=== PATIENT | female | born 2005 | race Caucasian/White ===

== ENCOUNTER 2023-12-09 13:00 | Outpatient (AMB) | payer BC, SELFPAY ==
--- NOTE | 2023-12-09 13:06 | A.OFFPC_ITS ---
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 Required: No Is last menstrual period known: No Allergies sulfamethoxazole [From Bactrim] Allergy (Intermediate, Verified 12/09/23 13:07) skin rash trimethoprim [From Bactrim] Allergy (Intermediate, Verified 12/09/23 13:07) skin rash Medication List - Last Reconciled 12/09/23 by Shannan Huitron PA-C escitalopram oxalate (Lexapro) 5 mg PO DAILY propranolol 20 mg PO ONCE PRN 30 days Tobacco use date assessed: 12/09/23 Dental Screening Dental Screen Date: 12/09/23 Did you have a dental visit in the last 12 months?: Yes Did you have a dental problem in the last 6 months where you did not have access to dental care?: No Was dental information given to patient?: Patient has dentist 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 She states that 6 months ago she had labs and her cholesterol was elevated along with her thyroid function. She was supposed to get this rechecked but never did. She states that she has a small lesion on the right outside thigh. She states recently it got a bit darker and changed. No fam hx of skin cancer. She would like this checked out. She states in the last month she has felt like her hearing is off. She states sometimes she has a hard time pinpointing where a sound is coming from. She denies any headaches, vision changes, dizziness. She does wear headphones a lot and has at times had ringing in the ears. Denies any drainage from the ear, pain, sinus pain or pressure. She does report that her anxiety is significantly flared up over the last 6 months. She states that in the spring sem she had a very hard semester at school because she was constantly panicked. She states that any time she has to do a big test or any sort of public speaking it makes her anxious. She states that even if she finds out about it with plenty of time to prepare she feels anxious everyday. She has always had a hard time talking with people in groups or even 1 on . She states that she gets social anxiety and anxiety going new places. She can feel her heart race at times with this. She has talked with a counselor and she states that it felt good to speak with someone but she did not feel like it was very beneficial in treating her. No SI/HI. She has had anxiety since childhood. 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 1. Little interest or pleasure in doing things: not at all 2. Feeling down, depressed, or hopeless: not at all 3. Trouble falling or staying asleep, or sleeping too much: several days 4. Feeling tired or having little energy: several days 5. Poor appetite or overeating: not at all 6. Feeling bad about yourself - or that you are a failure or have let yourself or your family down: not at all 7. Trouble concentrating on things, such as reading the newspaper or watching television: several days 8. Moving or speaking so slowly that other people could have noticed. Or the opposite - being so fidgety or restless that you have been moving around a lot more than usual: not at all 9. Thoughts that you would be better off or of hurting yourself in some way: not at all Total score: 3 Depression Screening Interpretation: Positive Depression Screening Done: Yes 24712 - PHQ-9 Billing: Yes Source: Developed by Drs. Negrito Duncan, Caron Sotelo, Nils Garcia and colleagues, with an educational bishop from [employer]. Thrive Questionnaire Date Thrive assessed: 12/09/23 I am a: Patient What is your living situation today?: I have a steady place to live Within the past 12 months, did the food you bought not last and you didn't have the money to get more?: Never true Within the past 12 months, did you worry whether your food would run out before you got money to buy more?: Never true Do you have trouble paying for medicines?: No Do you have trouble getting transportation to medical appointments?: No Do you have trouble paying your heating and electricity bill?: No Do you have trouble taking care of your child, family member or friend?: No Do you have trouble with day-to-day activities such as bathing, preparing meals, shopping, managing finances, etc.?: No Are you interested in more education?: Yes Please select the resources that you would like help with: None Currently or been in a relationship where the following occur: No concerns reported THRIVE Score: 0 AUDIT C Alcohol Use Questionnaire (AUDIT-C) 1. How often do you have a drink containing alcohol?: Never 3. How often do you have six or more drinks on one occasion?: Never Total Score: 0 CLARIBEL-7 AMB Questionnaire CLARIBEL-7 Date CLARIBEL - 7 assessed: 12/09/23 Feeling nervous, anxious, or on edge: 2 = More than half the days Not being able to stop or control worryin = More than half the days Worrying too much about different things: 1 = Several days Trouble relaxin = Several days Being so restless that it is hard to sit still: 1 = Several days Becoming easily annoyed or irritable: 1 = Several days Feeling afraid as if something awful might happen: 1 = Several days Total CLARIBEL-7 score (0-4 normal; 5-9 mild; 10-14 moderate; 15-21 severe): 9 Source: Developed by Drs. Negrito Duncan, Caron Sotelo, Nils Garcia and colleagues, with an educational bishop from [employer]. CLARIBEL-7 Assessment Billing CLARIBEL-7 Assessment Tool: CLARIBEL-7 Assessment 73484 Physical exam (Primary Care) Vital Signs: Last Vital Signs Temp 98.8 F 12/09/23 13:08 Pulse 115 H 12/09/23 13:08 Resp 12 12/09/23 13:08 BP 102/70 12/09/23 13:08 Pulse Ox 98 12/09/23 13:08 Oxygen Delivery Method Room Air 12/09/23 13:08 BMI result Body Mass Index 23.2 Depression Screening Interpretation: Positive Currently or been in a relationship where the following occur: No concerns reported Const Orientation/consciousness: patient oriented x3 HENMT Ears: hearing grossly normal bilaterally (Able to hear a soft whisper 4 ft away bilaterally) and TM's normal bilaterally Face and sinus: Yes sinuses nontender Neck Thyroid: Thyroid normal Lymphatic: no lymphadenopathy noted Resp Auscultation: clear to auscultation bilaterally Cardio Rate: regular rate Rhythm: regular rhythm Heart sounds: S1 normal heart sound present and S2 normal heart sound present GI Inspection: Yes normal to inspection Palpation (GI): Soft to palpation and Other GI palpation findings present (nontender, no cva tenderness) Auscultation: normoactive bowel sounds Rectal Exam - Female: deferred Skin General skin exam: no rashes or lesions noted Neuro General: patient oriented x3, gait normal, moves all extremities, Normal light touch and pain sensation, no focal motor deficits and deep tendon reflexes 2+ bilaterally Assessment and Plan Assessment & Plan (1) Subclinical hypothyroidism: Code(s): E03.8 - Other specified hypothyroidism Plan: Labs ordered today. We will follow up pending test results. (2) Dyslipidemia: Code(s): E78.5 - Hyperlipidemia, unspecified Plan: We will recheck labs (3) Generalized anxiety disorder: Code(s): F41.1 - Generalized anxiety disorder Plan: We will start on Lexapro. Discussed risks and benefits and adverse effects of the medication. Follow up in a few weeks. A prescription for propranolol was provided to use as needed for performance anxiety. We also discussed the risks, benefits and adverse effects of this including dizziness. (4) Skin lesion of right leg: Code(s): L98.9 - Disorder of the skin and subcutaneous tissue, unspecified Plan: Referral to [facility] (5) Change in hearing: Code(s): H91.90 - Unspecified hearing loss, unspecified ear Plan: Referral to ENT Orders: Orders Complete Blood Count Auto Diff Today E03.8 - Other specified hypothyroidism, E78.5 - Hyperlipidemia, unspecified Comprehensive [place]. Panel Fast Today E03.8 - Other specified hypothyroidism, E78.5 - Hyperlipidemia, unspecified TSH reflex Free T4 Today E03.8 - Other specified hypothyroidism, E78.5 - Hyperlipidemia, unspecified Thyroglobulin Antibodies Today E03.8 - Other specified hypothyroidism, E78.5 - Hyperlipidemia, unspecified, F41.1 - Generalized anxiety disorder Thyroid Peroxidase Antibodies Today E03.8 - Other specified hypothyroidism, E78.5 - Hyperlipidemia, unspecified, F41.1 - Generalized anxiety disorder Lipid Panel Today E03.8 - Other specified hypothyroidism, E78.5 - Hyperlipidemia, unspecified Referrals Dermatology Referral L98.9 - Disorder of the skin and subcutaneous tissue, unspecified Ear/Nose/Throat Referral H91.90 - Unspecified hearing loss, unspecified ear Medications: New escitalopram oxalate (Lexapro) 5 mg PO DAILY 30 tabs 2RF propranolol 20 mg PO ONCE 30 days PRN 30 tabs 0RF panic attack(s) Coding Level of Care Code Est Pt Level 4 (89443) Complex EM visit Add On G2211 Diagnoses Subclinical hypothyroidism E03.8 Dyslipidemia E78.5 Generalized anxiety disorder F41.1 Skin lesion of right leg L98.9 Change in hearing H91.90 Additional Codes CLARIBEL-7 Assessment Billing - CLARIBEL-7 Assessment Tool: CLARIBEL-7 Assessment 47429 ([id number])
[2023-12-09 13:08] VITALS: BP 102/70; PULSE 115; RESP 12; TEMP 37.1; O2SAT 98; BMI 23.2
== END 2023-12-09 13:46 | disposition home or self-care (01) ==
PROVIDERS: PCP Physician Assistant; Visit Provider Physician Assistant
DX: E03.8 Other specified hypothyroidism (principal); E78.5 Hyperlipidemia, unspecified; L98.9 Disorder of the skin and subcutaneous tissue, unspecified; H91.90 Unspecified hearing loss, unspecified ear; F41.1 Generalized anxiety disorder
CPT/HCPCS: 96127; 99214

== ENCOUNTER 2023-12-11 07:40 | Outpatient (REF) | payer BC, SELFPAY ==
[2023-12-11 11:11] LABS: MANUAL DIFF FLAG NO
[2023-12-11 11:14] LABS: Basophils Absolute Auto 0.1 X10*3/uL (0.0-0.2); Basophils Percent Auto 0.8 % (0-2); Eosinophils Absolute Auto 0.3 X10*3/uL (0.0-0.4); Eosinophils Percent Auto 2.8 % (0-4); Hematocrit 41.8 % (37.0-47.0); Hemoglobin 13.5 g/dl (12.0-16.0); Imm Gran Abs Auto 0.01 X10*3/uL (0.00-0.03); Imm Gran Pct Auto 0.1 % (0.0-0.4); Lymphocytes Absolute Auto 4.4 X10*3/uL (1.2-4.9); Lymphocytes Percent Auto 48.2 % (20-40); Mean Corpuscular HGB Conc 32.3 g/dl (31.0-35.0); Mean Corpuscular Hemoglobin 29.7 pg (27.0-33.0); Mean Corpuscular Volume 91.9 fL (80.0-98.0); Monocytes Absolute Auto 0.5 X10*3/uL (0.1-1.2); Monocytes Percent Auto 5.6 % (2-11); Neutrophils Absolute Auto 3.9 x10*3/uL (2.0-8.3); Neutrophils Percent Auto 42.5 % (45-73); Platelet Count 339 X10*3/uL (160-400); Red Blood Count 4.55 X10*6/uL (4.20-5.50); Red Cell Distribution Width 12.4 % (11.0-16.0); White Blood Count 9.1 X10*3/uL (4.8-10.8)
[2023-12-11 11:58] LABS: Alanine Aminotransferase 9 U/L (0-31); Albumin Level 4.2 g/dL (3.5-5.0); Alkaline Phosphatase 46 U/L (39-117); Anion Gap 12 (12-20); Aspartate Amino Transferase 13 U/L (5-31); Bilirubin Total 0.3 mg/dL (0.0-1.0); Blood Urea Nitrogen 15 mg/dL (9-16); Calcium 10.2 mg/dL (8.4-10.2); Carbon Dioxide 28 mmol/L (22-29); Chloride 103 mmol/L (96-108); Cholesterol 266 mg/dL (<200); Estimated Glomerular Filt Rate > 60; Glucose Fasting 81 mg/dL (60-99); HDL Cholesterol 61 mg/dL (>40); LDL Cholesterol Calculated 148 mg/dL (<100); Potassium 3.6 mmol/L (3.3-5.1); Sodium 139 mmol/L (135-145); Total Protein 7.6 g/dL (6.5-8.0); Triglycerides 286 mg/dL (<150)
[2023-12-11 12:21] LABS: TSH reflex Free T4 7.38 uIU/mL (0.32-4.0)
[2023-12-11 13:09] LABS: Free T4 (Free Thyroxine) 0.89 ng/dL (0.71-1.85)
[2023-12-12 09:49] LABS: Thyroglobulin Antibodies <1 IU/mL (< or = 1); Thyroid Peroxidase Antibodies 1 IU/mL (<9)
== END 2023-12-11 07:41 | disposition home or self-care (01) ==
LOC: HO.WFDLDS 07:40
PROVIDERS: Visit Provider Physician Assistant
DX: E03.8 Other specified hypothyroidism (principal); E78.5 Hyperlipidemia, unspecified; F41.1 Generalized anxiety disorder
CPT/HCPCS: 36415; 80053; 80061; 84439; 84443; 85025; 86376; 86800

== ENCOUNTER 2023-12-23 14:04 | Outpatient (AMB) | payer BC, SELFPAY ==
--- NOTE | 2023-12-23 14:05 | A.OFFPC_ITS ---
Vital Signs 12/23/23 14:10 Height 5 ft 4.96 in Weight 142 lb 6 oz BMI 23.7 BP 126/58 L Blood Pressure Location Lt brachial Position Sitting Respiration 12 Pulse 101 H Pulse Source Pulse Oximeter Pulse Oximetry (%) 99 Oxygen Delivery Method Room Air Intake Visit Reasons: med check Intake Note: Medication follow up Allergies sulfamethoxazole [From Bactrim] Allergy (Intermediate, Verified 12/23/23 14:07) skin rash trimethoprim [From Bactrim] Allergy (Intermediate, Verified 12/23/23 14:07) skin rash Medication List - Last Reconciled 12/23/23 by Shannan Huitron PA-C levothyroxine 25 mcg PO DAILY propranolol 20 mg PO ONCE PRN 30 days Tobacco use date assessed: 12/09/23 Dental Screening Dental Screen Date: 12/09/23 HPI med check HPI Details Patient is a 18-year-old female who presents today for a follow up. Psych: I recently started her on Lexapro and she states that this is is only minimally helpful. She states she will not really know how it feels until she starts school in a couple weeks but she thinks she would possibly benefit from an increased dose. No side effects. No SI/HI. She is traveling to school tomorrow to move in. Endo: TSH is consistently elevated but she does not want to start levothyroxine. understands this may be contributing to symptoms but does not wish to start this. [facility] Family History (Updated 12/09/23 @ 13:49 by Atiya Jc CMA) Maternal Grandmother Diabetes Social History Housing: Other (campus housing) Patient Tobacco Use Status: Never used Tobacco e-Cigarette/Vaping Use: Never Used Second Hand Smoke Exposure: No service: No Current occupational status: student Cognitive needs: No Hearing needs: No Vision needs: No Questionnaire PHQ-9 Over the last 2 weeks, how often have you been bothered by any of the following problems? 1. Little interest or pleasure in doing things: not at all 2. Feeling down, depressed, or hopeless: not at all 3. Trouble falling or staying asleep, or sleeping too much: more than half the days 4. Feeling tired or having little energy: several days 5. Poor appetite or overeating: not at all 6. Feeling bad about yourself - or that you are a failure or have let yourself or your family down: not at all 7. Trouble concentrating on things, such as reading the newspaper or watching television: several days 8. Moving or speaking so slowly that other people could have noticed. Or the opposite - being so fidgety or restless that you have been moving around a lot more than usual: not at all 9. Thoughts that you would be better off or of hurting yourself in some way: not at all Total score: 4 Depression Screening Interpretation: Positive Depression Screening Done: Yes 10325 - PHQ-9 Billing: Yes Source: Developed by Drs. Negrito Duncan, Caron Sotelo, Nils Garcia and colleagues, with an educational bishop from [employer]. Thrive Questionnaire Date Thrive assessed: 12/09/23 CLARIBEL-7 AMB Questionnaire CLARIBEL-7 Date CLARIBEL - 7 assessed: 12/09/23 Feeling nervous, anxious, or on edge: 1 = Several days Not being able to stop or control worryin = Several days Worrying too much about different things: 1 = Several days Becoming easily annoyed or irritable: 1 = Several days Feeling afraid as if something awful might happen: 1 = Several days Source: Developed by Drs. Negrito Duncan, Caron Sotelo, Nils Garcia and colleagues, with an educational bishop from [employer]. CLARIBEL-7 Assessment Billing CLARIBEL-7 Assessment Tool: CLARIBEL-7 Assessment 31995 Physical exam (Primary Care) Vital Signs: Last Vital Signs Pulse 101 H 12/23/23 14:10 Resp 12 12/23/23 14:10 BP 126/58 L 12/23/23 14:10 Pulse Ox 99 12/23/23 14:10 Oxygen Delivery Method Room Air 12/23/23 14:10 BMI result Body Mass Index 23.7 Tobacco/Smoking Status: Tobacco use Status Tobacco use date assessed 12/09/23 12/23/23 14:12 Patient Tobacco Use Status Never used Tobacco 12/23/23 14:12 e-Cigarette/Vaping Use Never Used 12/23/23 14:12 PHQ-9: PHQ-9 Score PHQ-9: Total score 4 12/23/23 14:12 Depression Screening Interpretation: Positive Thrive Assessment: Date of Thrive Assessment Date Thrive assessed 12/09/23 12/23/23 14:12 Results Reviewed Results Reviewed: Laboratory Tests 12/11/23 07:41 Sodium 139 Potassium 3.6 Chloride 103 Carbon Dioxide 28 Anion Gap 12 Creatinine 0.82 Estimated GFR > 60 TSH 7.38 H Free T4 0.89 Assessment and Plan Assessment & Plan (1) Generalized anxiety disorder: Code(s): F41.1 - Generalized anxiety disorder Plan: Increase dose to 10 mg. Follow up on winter. Sooner if needed. Patient understands and agrees with the plan. (2) Subclinical hypothyroidism: Code(s): E03.8 - Other specified hypothyroidism Plan: Discussed the benefits of treating this. We will continue to monitor. She is not going to take the levothyroxine. Medications: New escitalopram oxalate (Lexapro) 10 mg PO DAILY 90 tabs 2RF Discontinued levothyroxine Discontinued Reason: Doctor's Order 25 mcg PO DAILY 90 tabs 0RF Coding Level of Care Code Est Pt Level 4 (37567) Complex EM visit Add On G2211 Diagnoses Generalized anxiety disorder F41.1 Subclinical hypothyroidism E03.8 Additional Codes CLARIBEL-7 Assessment Billing - CLARIBEL-7 Assessment Tool: CLARIBEL-7 Assessment [id number] ([id number])
[2023-12-23 14:10] VITALS: BP 126/58; PULSE 101; RESP 12; O2SAT 99; BMI 23.7
== END 2023-12-23 14:30 | disposition home or self-care (01) ==
PROVIDERS: PCP Physician Assistant; Visit Provider Physician Assistant
DX: F41.1 Generalized anxiety disorder (principal); E03.8 Other specified hypothyroidism
CPT/HCPCS: 96127; 99214

== ENCOUNTER 2024-04-27 14:03 | Outpatient (AMB) | payer BC, SELFPAY ==
--- NOTE | 2024-04-27 14:34 | A.OFFPC_ITS ---
Vital Signs 04/27/24 14:59 Height 5 ft 4.96 in Weight 148 lb 2 oz BMI 24.7 BP 102/58 L Blood Pressure Location Lt brachial Position Sitting Pulse 100 Pulse Source Pulse Oximeter Pulse Oximetry (%) 99 Oxygen Delivery Method Room Air Intake Visit Reasons: anxiety f.u Intake Note: Follow up [place] Required: No Allergies sulfamethoxazole [From Bactrim] Allergy (Intermediate, Verified 04/27/24 14:36) skin rash trimethoprim [From Bactrim] Allergy (Intermediate, Verified 04/27/24 14:36) skin rash Medication List - Last Reconciled 04/27/24 by Shannan Huitron PA-C propranolol 20 mg PO DAILY Tobacco use date assessed: 12/09/23 Dental Screening Dental Screen Date: 12/09/23 HPI anxiety f.u HPI Details History of Present Illness The patient is a 18-year-old female presenting with anxiety. She has been managing her anxiety with propranolol, which she finds helpful during specific scenarios such as presentations or socially stressful events. The patient reports that she successfully uses 10 mg doses for these situations and has di scontinued the use of Lexapro. She has not had significant anxiety symptoms outside of these occurrences. Additionally, the patient has a history of hypothyroidism, with a previously recorded TSH level of 7.38. She has not decided to initiate treatment yet, as her symptoms were minimal. However, I advised her that untreated hypothyroidism could potentially exacerbate anxiety or depressive symptoms and cause physical effects such as constipation, dry skin, hair loss, and brittle nails. The patient also has hypertriglyceridemia, which was identified during previous lab tests. Dietary habits, such as consuming 3-4 glasses of chocolate milk daily, may contribute to this. She does not consume alcohol and rarely eats processed foods, but acknowledges that the frequent intake of chocolate milk could be a factor. Health Maintenance - Encouraged dietary changes to reduce t riglycerides, such as reducing chocolate milk intake. - Discussed the relationship between unt reated hypothyroidism and potential anxiety/depression symptoms. - Planned follow-up for comprehensive la b work, including a recheck of thyroid function and lipid panel in the summer. - Discussed possible future dietary supp lementation with fish oil for cardiovascular health. Social History Review of Systems - Psychological: Reports anxiety during presentations and high-social stress days. - Endocrine: Denies significant symptoms of hypothyroidism such as fatigue, cold intolerance, or hair loss. - Dermatological: Denies dry skin and re ports strong nails. Physical Exam General: Well developed, well nourished, in no acute distress. Appears stated age.. Neck: Supple, no adenopathy or thyromegaly. No nodules on the thyroid are felt. Lungs: Clear to auscultation bilaterally. No rales, rhonchi or wheeze noted. Good air flow in all phelan. Heart: Regular rate and rhythm. No murmurs, click, rubs or gallops are noted. Pulses: Peripheral pulses are equal and palpable bilaterally. Extremities: No clubbing, cyanosis nor edema is noted. Neurologic: Gait and station normal. Cranial Nerves 2-12 intact. Motor strength grossly symmetrical and intact. No sensory loss. Balance normal. Skin: No rashes, ulcers, or lesions noted. Turgor is good. Skin color is good. Hair and nails are without abnormalities. Psych: Normal eye contact, affect and mood appropriate, and normal interactions. Patient is alert and appropriate to context. Results - Labs: Previous TSH level was 7.38. Dot vated triglycerides noted on past lab assessments. Plan - Continue propranolol as needed for anx iety management during presentations. - Recheck thyroid function today, and co nsider treatment options if TSH remains elevated. - Reevaluate lipid profile in the summer ; reduce chocolate milk intake as part of dietary modifications. - Encourage monitoring of thyroid functi on and consider ultrasound if thyroid dysfunction persists. Patient was informed and verbally consented to the use of an ambient scribe for clinic note documentation during this visit. Discussion Notes I discussed with the patient the potential for untreated hypothyroidism to impact her anxiety and overall health. We reviewed the benefits of medication for hypothyroidism and the importance of monitoring her thyroid levels. Additionally, we discussed strategies for managing her hypertriglyceridemia through dietary adjustments, especially reducing chocolate milk intake. The patient was informed about the potential use of fish oil supplements if dietary changes don't achieve desired lipid levels. I will re-evaluate her health status and lab results in six months for a comprehensive physical examination. Follow- up care and potential further diagnostics, including a thyroid ultrasound, will be determined based on today's and future lab results. Patient Instructions - Continue to take propranolol as needed for situational anxiety. - [place] to obtain thyroid blood test today or at the earliest convenience. - Reduce chocolate milk consumption to i mprove triglyceride levels. - Return in six months for a comprehensi ve follow-up exam. - Monitor symptoms related to thyroid fu nction and report any new symptoms promptly. [facility] Family History (Updated 12/09/23 @ 13:49 by Atiya Jc CMA) Maternal Grandmother Diabetes Social History Housing: Other (campus housing) Patient Tobacco Use Status: Never used Tobacco e-Cigarette/Vaping Use: Never Used Second Hand Smoke Exposure: No service: No Current occupational status: student Cognitive needs: No Hearing needs: No Vision needs: No Questionnaire PHQ-9 Over the last 2 weeks, how often have you been bothered by any of the following problems? 1. Little interest or pleasure in doing things: not at all 2. Feeling down, depressed, or hopeless: not at all 3. Trouble falling or staying asleep, or sleeping too much: several days 4. Feeling tired or having little energy: not at all 5. Poor appetite or overeating: not at all 6. Feeling bad about yourself - or that you are a failure or have let yourself or your family down: not at all 7. Trouble concentrating on things, such as reading the newspaper or watching television: several days 8. Moving or speaking so slowly that other people could have noticed. Or the opposite - being so fidgety or restless that you have been moving around a lot more than usual: not at all 9. Thoughts that you would be better off or of hurting yourself in some way: not at all Total score: 2 Source: Developed by Drs. Negrito Duncan, Caron Sotelo, Nils Garcia and colleagues, with an educational bishop from [email or web address]. Thrive Questionnaire Date Thrive assessed: 04/20/24 I am a: Patient What is your living situation today?: I have a steady place to live Within the past 12 months, did the food you bought not last and you didn't have the money to get more?: Never true Within the past 12 months, did you worry whether your food would run out before you got money to buy more?: Never true Do you have trouble paying for medicines?: No Do you have trouble getting transportation to medical appointments?: No Do you have trouble paying your heating and electricity bill?: No Do you have trouble taking care of your child, family member or friend?: No Do you have trouble with day-to-day activities such as bathing, preparing meals, shopping, managing finances, etc.?: No Are you currently unemployed and looking for a job?: No Are you interested in more education?: Yes Please select the resources that you would like help with: None Currently or been in a relationship where the following occur: No concerns reported THRIVE Score: 0 AUDIT C Alcohol Use Questionnaire (AUDIT-C) 1. How often do you have a drink containing alcohol?: Never Total Score: 0 CLARIBEL-7 AMB Questionnaire CLARIBEL-7 Date CLARIBEL - 7 assessed: 12/09/23 Feeling nervous, anxious, or on edge: 1 = Several days Not being able to stop or control worryin = Several days Worrying too much about different things: 1 = Several days Trouble relaxin = Several days Being so restless that it is hard to sit still: 1 = Several days Becoming easily annoyed or irritable: 1 = Several days Feeling afraid as if something awful might happen: 1 = Several days Total CLARIBEL-7 score (0-4 normal; 5-9 mild; 10-14 moderate; 15-21 severe): 7 Source: Developed by Drs. Negrito Duncan, Caron Sotelo, Nils Garcia and colleagues, with an educational bishop from [email or web address]. Physical exam (Primary Care) Tobacco/Smoking Status: Tobacco use Status Tobacco use date assessed 12/09/23 04/27/24 14:36 Patient Tobacco Use Status Never used Tobacco 04/27/24 14:36 e-Cigarette/Vaping Use Never Used 04/27/24 14:36 PHQ-9: PHQ-9 Score PHQ-9: Total score 2 04/27/24 14:36 Thrive Assessment: Date of Thrive Assessment Date Thrive assessed 04/20/24 04/27/24 14:36 Currently or been in a relationship where the following occur: No concerns reported Coding Level of Care Code Est Pt Level 4 (11776) Complex EM visit Add On G2211 Diagnoses Generalized anxiety disorder F41.1 Subclinical hypothyroidism E03.8 Assessment & Plan Assessment & Plan (1) Generalized anxiety disorder: Code(s): F41.1 - Generalized anxiety disorder Category: Medical (2) Subclinical hypothyroidism: Code(s): E03.8 - Other specified hypothyroidism Category: Medical Plan . Orders: Orders TSH reflex Free T4 Today E03.8 - Other specified hypothyroidism
[2024-04-27 14:59] VITALS: BP 102/58; PULSE 100; O2SAT 99; BMI 24.7
== END 2024-04-27 15:00 | disposition home or self-care (01) ==
PROVIDERS: PCP Physician Assistant; Visit Provider Physician Assistant
DX: F41.1 Generalized anxiety disorder (principal); E03.8 Other specified hypothyroidism

== ENCOUNTER 2024-12-02 11:11 | Outpatient (AMB) | payer BC, SELFPAY ==
--- NOTE | 2024-12-02 11:13 | MHC.PC.OV ---
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 Allergies sulfamethoxazole (From Bactrim) Allergy (Intermediate, Verified 12/02/24 11:28) skin rash trimethoprim (From Bactrim) Allergy (Intermediate, Verified 12/02/24 11:28) skin rash Medication List - Last Reconciled 12/02/24 by SAEID Carney- propranolol 20 mg PO DAILY Tobacco use date assessed: 12/02/24 Dental Screening Dental Screen Date: 12/02/24 Did you have a dental visit in the last 12 months?: Yes Did you have a dental problem in the last 6 months where you did not have access to dental care?: No Was dental information given to patient?: Patient has dentist HPI HPI Comments History of Present Illness Details Patient of . Chart reviewed. History of Present Illness - The patient is a 19-year-old female presenting with a request for a complete physical examination and management of anxiety. - History of hyperlipidemia, managed with lifestyle changes. - Subclinical hypothyroidism, patient has declined treatment. - Generalized anxiety disorder managed with as-needed propranolol. Need academic accomadations to avoid public speaking; has been doing this with great success. School disability office asking for letter; specifically referral to neuropsychology services - No surgical history. - No changes in family medical history reported. Family History - No changes in family medical history reported. Social History - Currently a student, studying [email or web address]. - Previously participated in a study abroad program in [facility] for academic credit. - Not sexually active. Health Maintenance - Offered a tetanus vaccination during the visit, but the patient declined at this time. - Discussed managing hyperlipidemia through lifestyle modification and the importance of repeat lab work for monitoring cholesterol and thyroid levels. Review of Systems - General: Denies weakness or dizziness when changing positions. - Cardiovascular: Reports no surgeries or cardiovascular family history changes. - Endocrine: Reports subclinical hypothyroidism. Managing hyperlipidemia with lifestyle modifications. - Psychiatric: Reports anxiety affecting academic performance and explorations into academic accommodations. - Gastrointestinal: Denies any gastrointestinal complaints including abnormal bowel movements. Physical Exam General: Well developed, well nourished, in no acute distress. Appears stated age. Head: Normocephalic, atraumatic. Eyes: Pupils are equal, round and reactive to light and accommodation. Conjunctivae are clear. Vision grossly normal. Ears: TMs clear AU, EACS WNL Nose: Patent, without discharge. Neck: Supple, no adenopathy or thyromegaly. Thyroid examined, no tenderness noted. Breast: Edu on SBE. Patient advised to [employer] self breast exam for further education. Lungs: Clear to auscultation bilaterally. No rales, rhonchi or wheeze noted. Good air flow in all phelan. Heart: Regular rate and rhythm. No murmurs, click, rubs or gallops are noted. Abdomen: Bowel sounds present in all quadrants. The abdomen is soft, nontender, with no masses or organomegaly noted. No hernias are noted. : Deferred. 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 Pulses: Peripheral pulses are equal and palpable bilaterally. Extremities: No clubbing, cyanosis nor edema is noted. No open areas, sores, or rashes on feet. Neurologic: Gait and station normal. Cranial Nerves 2-12 intact. Motor strength grossly symmetrical and intact. No sensory loss. Balance normal. Skin: No rashes, ulcers, or lesions noted. Turgor is good. Skin color is good. Hair and nails are without abnormalities. Psych: Normal eye contact, affect and mood appropriate, and normal interactions. Patient is alert and appropriate to context. Results - Labs: Updated orders for lipid panel and thyroid functions to be completed at patient's convenience Discussion Notes During the visit, we discussed the patient's history of hyperlipidemia managed through lifestyle modifications, subclinical hypothyroidism with no current treatment, and generalized anxiety disorder treated with as-needed propranolol. The patient expressed ongoing concerns about anxiety impacting her academic performance, for which she sought assistance through Student Disability Services. We discussed potential referrals to neuropsychology, emphasizing the challenge of accessing services, as she will be going back to [place] in 3 weeks. Although a tetanus vaccine was offered, the patient declined it for this visit. We outlined lab work for cholesterol and thyroid monitoring, reinforcing the importance of these tests in managing hypertension and thyroid-related concerns. Additionally, we discussed the preparation of a detailed letter to assist with academic accommodations for anxiety-related issues. Assessment and Plan 1. Generalized Anxiety Disorder - Continue propranolol as needed. - Provided her academic accommodation letter. - Consider neuropsychology referral only if needed for school 2. Hyperlipidemia - Lifestyle modifications ongoing. - Lipid panel ordered. 3. Subclinical Hypothyroidism - Monitoring without treatment. - Thyroid functions ordered. Patient Instructions - Follow a healthy lifestyle to manage cholesterol levels. - Get the recommended labs done at your convenience. - Let me know if you need assistance with a letter for your academic accommodations. - Discuss any new or worsening symptoms. Consent Patient was informed and verbally consented to the use of an ambient scribe for clinic note documentation during this visit. An additional 20 minutes was spent addressing the problem(s) noted at todays visit. This includes time spent before the visit reviewing the chart, time spent during the visit, and time spent after the visit on documentation reviewing laboratory results, diagnostic imaging, medications, performing a medically necessary evaluation, counseling on diagnoses, care coordination, ordering appropriate tests, ordering appropriate medications, review of tests performed by other providers, reporting test results with the patient, communication with other healthcare providers. [facility] Family History (Updated 12/09/23 @ 13:49 by Atiya Jc CMA) Maternal Grandmother Diabetes Social History Housing: Other Patient Tobacco Use Status: Never used Tobacco e-Cigarette/Vaping Use: Never Used Second Hand Smoke Exposure: No service: No Current occupational status: student Cognitive needs: No Hearing needs: No Vision needs: No Questionnaire PHQ-9 Over the last 2 weeks, how often have you been bothered by any of the following problems? 1. Little interest or pleasure in doing things: not at all 2. Feeling down, depressed, or hopeless: not at all 3. Trouble falling or staying asleep, or sleeping too much: several days 4. Feeling tired or having little energy: several days 5. Poor appetite or overeating: not at all 6. Feeling bad about yourself - or that you are a failure or have let yourself or your family down: not at all 7. Trouble concentrating on things, such as reading the newspaper or watching television: several days 8. Moving or speaking so slowly that other people could have noticed. Or the opposite - being so fidgety or restless that you have been moving around a lot more than usual: not at all 9. Thoughts that you would be better off or of hurting yourself in some way: not at all Total score: 3 Depression Screening Interpretation: Negative Depression Screening Done: Yes 60715 - PHQ-9 Billing: Yes Source: Developed by Drs. Negrito Duncan, Caron Sotelo, Nils Garcia and colleagues, with an educational bishop from [employer]. Thrive Questionnaire Date Thrive assessed: 12/02/24 I am a: Patient What is your living situation today?: I have a steady place to live Within the past 12 months, did the food you bought not last and you didn't have the money to get more?: Never true Within the past 12 months, did you worry whether your food would run out before you got money to buy more?: Never true Do you have trouble paying for medicines?: No Do you have trouble getting transportation to medical appointments?: No Do you have trouble paying your heating and electricity bill?: No Do you have trouble taking care of your child, family member or friend?: No Do you have trouble with day-to-day activities such as bathing, preparing meals, shopping, managing finances, etc.?: No Are you currently unemployed and looking for a job?: No Are you interested in more education?: Yes Please select the resources that you would like help with: None Currently or been in a relationship where the following occur: No concerns reported THRIVE Score: 0 AUDIT C Alcohol Use Questionnaire (AUDIT-C) 1. How often do you have a drink containing alcohol?: Never 3. How often do you have six or more drinks on one occasion?: Never Total Score: 0 Score Reviewed/Action Taken: Yes CLARIBEL-7 AMB Questionnaire CLARIBEL-7 Date CLARIBEL - 7 assessed: 12/02/24 Feeling nervous, anxious, or on edge: 1 = Several days Not being able to stop or control worryin = Not at all Worrying too much about different things: 1 = Several days Trouble relaxin = Not at all Being so restless that it is hard to sit still: 0 = Not at all Becoming easily annoyed or irritable: 0 = Not at all Feeling afraid as if something awful might happen: 0 = Not at all Total CLARIBEL-7 score (0-4 normal; 5-9 mild; 10-14 moderate; 15-21 severe): 2 Source: Developed by Drs. Negrito Duncan, Caron Sotelo, Nils Garcia and colleagues, with an educational bishop from [employer]. CLARIBEL-7 Assessment Billing CLARIBEL-7 Assessment Tool: CLARIBEL-7 Assessment 53555 Physical exam (Primary Care) Tobacco/Smoking Status: Tobacco use Status Tobacco use date assessed 12/02/24 12/02/24 11:14 Patient Tobacco Use Status Never used Tobacco 12/02/24 11:14 e-Cigarette/Vaping Use Never Used 12/02/24 11:14 PHQ-9: PHQ-9 Score PHQ-9: Total score 3 12/02/24 11:14 Depression Screening Interpretation: Negative Thrive Assessment: Date of Thrive Assessment Date Thrive assessed 12/02/24 12/02/24 11:14 Currently or been in a relationship where the following occur: No concerns reported Results Reviewed Results Reviewed: Coding Level of Care Code Est Pt Level 3 (74011) Est Pt Prev Care 18-39y(48363) Diagnoses Encounter for general adult medical examination without abnormal findings Z00.00 Generalized anxiety disorder F41.1 Dyslipidemia E78.5 Subclinical hypothyroidism E03.8 Tetanus, diphtheria, and acellular pertussis (Tdap) vaccination declined Z28.21 Additional Codes CLARIBEL-7 Assessment Billing - CLARIBEL-7 Assessment Tool: CLARIBEL-7 Assessment 94568 ([id number]) PHQ-9 - 58558 - PHQ-9 Billing: Yes ([id number]) Assessment & Plan Assessment & Plan (1) Encounter for general adult medical examination without abnormal findings: Onset Date: ~12/02/24 Code(s): Z00.00 - Encounter for general adult medical examination without abnormal findings Category: Medical (2) Generalized anxiety disorder: Code(s): F41.1 - Generalized anxiety disorder Category: Medical (3) Dyslipidemia: Code(s): E78.5 - Hyperlipidemia, unspecified Category: Medical (4) Subclinical hypothyroidism: Code(s): E03.8 - Other specified hypothyroidism Category: Medical (5) Tetanus, diphtheria, and acellular pertussis (Tdap) vaccination declined: Code(s): Z28.21 - Immunization not carried out because of patient refusal Category: Medical Plan . Orders: Orders TSH reflex Free T4 Today E03.8 - Other specified hypothyroidism, E78.5 - Hyperlipidemia, unspecified Lipid Panel Today E03.8 - Other specified hypothyroidism, E78.5 - Hyperlipidemia, unspecified Patient Instructions: Health screenings for women You should visit your health care provider from time to time, even if you are healthy. The purpose of these visits is to: Screen for medical issues Assess your risk for future medical problems Encourage a healthy lifestyle Update vaccinations and other preventive care services Help you get to know your provider in case of an illness Information Even if you feel fine, you should still see your provider for regular checkups. These visits can help you avoid problems in the future. For example, the only way to find out if you have high blood pressure is to have it checked regularly. High blood sugar and high cholesterol levels also may not have any symptoms in the early stages. A simple blood test can check for these conditions. There are specific times when you should see your provider or receive specific health screenings. The [place] Preventive Services Task Force publishes a list of recommended screenings. Below are screening guidelines for women ages 18 to 39. BLOOD PRESSURE SCREENING Your blood pressure should be checked at least once every 3 to 5 years if: Your blood pressure is in the normal range (top number less than 120 mm Hg and bottom number less than 80 mm Hg) You don't have risk factors for high blood pressure Ask your provider if you need your blood pressure checked more often if: The top number is 120 to 129 mm Hg or the bottom number is 70 to 79 mm Hg You have diabetes, heart disease, kidney problems, are overweight, or have certain other health conditions You have a first-degree relative with high blood pressure You are Black You had high blood pressure during a If the top number is 130 mm Hg or greater or the bottom number is 80 mm Hg or greater, this is considered stage 1 hypertension. Schedule an appointment with your provider to learn how you can reduce your blood pressure. Watch for blood pressure screenings in your area. Ask your provider if you can stop in to have your blood pressure checked. BREAST CANCER SCREENING Experts do not agree about the benefits of breast self-exams in finding breast cancer or saving lives. Talk to your provider about what is best for you. A screening mammogram is not recommended for most women under age 40. Your provider may discuss and recommend mammograms, MRI scans, or ultrasounds if you have an increased risk for breast cancer, such as: A mother or sister who had breast cancer at a young age (most often starting screening earlier than the age the close relative was diagnosed) You carry a high-risk genetic marker CERVICAL CANCER SCREENING Cervical cancer screening should start at age 21 years unless your provider advises otherwise. After the first test: Women ages 21 through 29 should have a Pap test every 3 years. Exoprts do not agree on whether HPV testing is recommended for this age group. Women ages 30 through 65 should be screened with either a Pap test every 3 years or the HPV test every 5 years or both tests every 5 years (called cotesting ). Women who have been treated for precancer (cervical dysplasia) should continue to have Pap tests for 20 years after treatment or until age 65, whichever is longer. If you have had your uterus and cervix removed (total hysterectomy), and you have not been diagnosed with cervical cancer or precancer (high grade cervical neoplasia), you do not need cervical cancer screening. CHOLESTEROL SCREENING Cholesterol screening should begin at: Age 45 for women with no known risk factors for coronary heart disease Age 20 for women with known risk factors for coronary heart disease Repeat cholesterol screening should take place: Every 5 years for women with normal cholesterol levels More often if changes occur in lifestyle (including weight gain and diet) More often if you have diabetes, heart disease, kidney problems, or certain other conditions DIABETES SCREENING You should be screened for diabetes starting at age 35 and then repeated every 3 years if you have no risk factors for diabetes. Screening may need to start earlier and be repeated more often if you have other risk factors for diabetes, such as: You have a first degree relative with diabetes. You are overweight or have obesity. You have high blood pressure, prediabetes, or a history of heart disease. Screening for diabetes should be done if you are planning to become and you are overweight and have other risk factors such as high blood pressure. DENTAL EXAM Go to the dentist once or twice every year for an exam and cleaning. Your dentist will evaluate if you need more frequent visits. EYE EXAM Have an eye exam every 5 to 10 years before age 40. If you have vision problems, have an eye exam every 2 years or more often if recommended by your provider. You should have an eye exam that includes an examination of your retina (back of your eye) at least every year if you have diabetes. IMMUNIZATIONS Commonly needed vaccines include: Flu shot: get one every year. COVID-19 vaccine: ask your provider what is best for you. Tetanus-diphtheria and acellular pertussis (Tdap) vaccine: have one at or after age 19 as one of your tetanus-diphtheria vaccines if you did not receive it as an adolescent. Tetanus-diphtheria: have a booster (or Tdap) every 10 years. Varicella vaccine: receive 2 doses if you never had chickenpox or the varicella vaccine. Hepatitis B vaccine: receive 2, 3, or 4 doses, depending on your exact circumstances. Measles, mumps, and rubella (MMR) vaccine: receive 1 to 2 doses if you are not already immune to MMR. Your provider can tell you if you are immune. Ask your provider about the human papillomavirus (HPV) vaccine if: You have not received the HPV vaccine in the past You have not completed the full vaccine series (you should catch up on this shot) Ask your provider if you should receive other immunizations if you have certain health problems that increase your risk for some diseases such as pneumonia. INFECTIOUS DISEASE SCREENING Women who are sexually active should be screened for chlamydia and gonorrhea up until age 25. Women 25 years and older should be screened for chlamydia and gonorrhea if at high risk. Screening for hepatitis C: All adults ages 18 to 79 should get a one-time test for hepatitis C. people should be screened at every . Screening for human immunodeficiency virus (HIV): All people ages 15 to 65 should get a one-time test for HIV. Depending on your lifestyle and medical history, you may also need to be screened for infections such as syphilis and HIV, as well as other infections. PHYSICAL EXAM All adults should visit their provider from time to time, even if they are healthy. The purpose of these visits is to: Screen for disease Assess your risk of future medical problems Encourage a healthy lifestyle Update your vaccinations and other preventive care services Maintain a relationship with a provider in case of an illness Your height, weight, and BMI should be checked at every exam. During your exam, your provider may ask you about: Depression and anxiety Diet and exercise Alcohol and tobacco use Safety issues, such as using seat belts, smoke detectors, and intimate partner violence Your medicines and risk for interactions SKIN SELF-EXAM Your provider may check your skin for signs of skin cancer, especially if you're at high risk, such as if you: Have had skin cancer before Have close relatives with skin cancer Have a weakened immune system OTHER SCREENING Talk with your provider about colon cancer screening if you have a strong family history of colon cancer or polyps, or if you have had inflammatory bowel disease or polyps yourself. Routine bone density screening of women under 40 is not recommended.
[2024-12-02 11:16] VITALS: BP 122/68; PULSE 81; RESP 12; TEMP 36.1; O2SAT 98; BMI 24.6
--- OUTSIDE RECORDS SUMMARY | 2024-12-02 11:19 | XMS_ITS ---
Author Name [facility] Organization Unknown Care Team Organization Name Specialty Phone Email Start Date End Da tere [facility] Termed, PROVIDER Primary Care 03/18/202212/09
== END 2024-12-02 11:57 | disposition home or self-care (01) ==
LOC: HO.HMCFM 11:12
PROVIDERS: PCP Physician Assistant; Visit Provider Nurse Practitioner Family
DX: Z00.00 Encounter for general adult medical examination without abnormal findings (principal); E78.5 Hyperlipidemia, unspecified; F41.1 Generalized anxiety disorder; E03.8 Other specified hypothyroidism; Z28.21 Immunization not carried out because of patient refusal

== ENCOUNTER → 2024-12-02 11:11 | Outpatient (BNVA) | payer BC, SELFPAY | PROVIDERS: PCP Physician Assistant; Visit Provider Nurse Practitioner Family | DX: Z00.00 Encounter for general adult medical examination without abnormal findings (principal); E78.5 Hyperlipidemia, unspecified; F41.1 Generalized anxiety disorder; E03.8 Other specified hypothyroidism; Z28.21 Immunization not carried out because of patient refusal | CPT/HCPCS: 96127 ==

== ENCOUNTER 2025-04-26 12:55 | Outpatient (REF) | payer BC, SELFPAY ==
[2025-04-26 16:01] LABS: Cholesterol 280 mg/dL (<200); HDL Cholesterol 62 mg/dL (>40); Triglycerides 225 mg/dL (<150)
[2025-04-26 18:44] LABS: Free T4 (Free Thyroxine) 0.93 ng/dL (0.71-1.85)
== END 2025-04-26 12:56 | disposition home or self-care (01) ==
LOC: HO.WFDLDS 12:55
PROVIDERS: Visit Provider Nurse Practitioner Family
DX: E03.8 Other specified hypothyroidism (principal); E78.5 Hyperlipidemia, unspecified
CPT/HCPCS: 36415; 80061; 84439; 84443

== ENCOUNTER 2025-05-01 09:10 | Outpatient (AMB) | payer BC, SELFPAY ==
--- NOTE | 2025-05-01 09:19 | MHC.PC.OV ---
Vital Signs 05/01/25 09:25 Height 5 ft 4.96 in Weight 149 lb 4 oz BMI 24.9 BP 110/58 L Blood Pressure Location Rt brachial Position Sitting Respiration 14 Pulse 65 Pulse Source Pulse Oximeter Temp 98.5 F Temp Source Temporal Artery Scan Pulse Oximetry (%) 98 Oxygen Delivery Method Room Air Intake Visit Reasons: 6 mo KH FU Anxiety Intake Note: Andreia presents in the office today for a 6 month follow up to anxiety. Dietitian Helper Required: No Is last menstrual period known: Yes Last menstrual period: 03/27/25 Post menopausal: No Patient : No Allergies sulfamethoxazole (From Bactrim) Allergy (Intermediate, Verified 05/01/25 09:23) skin rash trimethoprim (From Bactrim) Allergy (Intermediate, Verified 05/01/25 09:23) skin rash Tobacco use date assessed: 05/01/25 Dental Screening Dental Screen Date: 05/01/25 Did you have a dental visit in the last 12 months?: Yes Did you have a dental problem in the last 6 months where you did not have access to dental care?: No Was dental information given to patient?: Patient has dentist HPI HPI Comments History of Present Illness Details 19-year-old female with a past medical history of dyslipidemia, subclinical hypothyroidism and anxiety presents for follow up. Anxiety-patient started taking propranolol 10-20 mg daily for the past semester at school, and it was very effective. She did 2 years of counseling prior to this, and she did learn coping strategies, but she still had persistent physical symptoms of anxiety. She has 1 semester left. She feels positive going into it after break. Dyslipidemia-patient says she has been eating differently in the last few weeks including more Australian toast and up to 4 glasses of chocolate milk a day. Her LDL cholesterol increased since December 2023. Her triglycerides are a little lower. She did not fast for the blood work. She does not think there is a family history of cardiovascular disease. She thinks her grandfather may have high cholesterol. She is a nonsmoker. She is not exercising, but she has thought about doing this. Hypothyroidism-denies symptoms. TSH 4.08. ROS: Constitutional: No fevers or chills. Denies weight fluctuation. Respiratory: No shortness of breath Cardiovascular: No chest pain Psychiatric: see HPI Physical exam: Constitutional: Alert, in no distress. Neck: Supple, Full range of motion. No lymphadenopathy. No palpable thyroid masses or enlargement. Respiratory: Clear to auscultation. Cardiovascular: S1 S2 regular. No murmurs. No carotid bruits. Psychiatric: Normal mood and affect ON LICENSE OF [facility] Family History Maternal Grandmother Diabetes Social History (Updated 05/01/25 @ 09:25 by Maru Molina CMA) Housing: Other Alcohol intake: never Patient Tobacco Use Status: Never used Tobacco e-Cigarette/Vaping Use: Never Used Second Hand Smoke Exposure: No Use of substances other than those prescribed or required for medical reasons: No Patient : No service: No Current occupational status: student Cognitive needs: No Hearing needs: No Vision needs: No Female Reproductive History Menstrual Date of last menstrual period: 03/27/25 Questionnaire PHQ-9 Over the last 2 weeks, how often have you been bothered by any of the following problems? 1. Little interest or pleasure in doing things: several days 2. Feeling down, depressed, or hopeless: not at all 3. Trouble falling or staying asleep, or sleeping too much: more than half the days 4. Feeling tired or having little energy: more than half the days 5. Poor appetite or overeating: several days 6. Feeling bad about yourself - or that you are a failure or have let yourself or your family down: not at all 7. Trouble concentrating on things, such as reading the newspaper or watching television: more than half the days 8. Moving or speaking so slowly that other people could have noticed. Or the opposite - being so fidgety or restless that you have been moving around a lot more than usual: not at all 9. Thoughts that you would be better off or of hurting yourself in some way: not at all Total score: 8 Depression Screening Interpretation: Positive Depression Screening Follow-up: Existing condition Depression Screening Done: Yes 63620 - PHQ-9 Billing: Yes Source: Developed by Drs. Negrito Duncan, Caron Sotelo, Nils Garcia and colleagues, with an educational bishop from [employer]. Thrive Questionnaire Date Thrive assessed: 11/30/24 I am a: Patient What is your living situation today?: I have a steady place to live Within the past 12 months, did the food you bought not last and you didn't have the money to get more?: Never true Within the past 12 months, did you worry whether your food would run out before you got money to buy more?: Never true Do you have trouble paying for medicines?: No Do you have trouble getting transportation to medical appointments?: No Do you have trouble paying your heating and electricity bill?: No Do you have trouble taking care of your child, family member or friend?: No Do you have trouble with day-to-day activities such as bathing, preparing meals, shopping, managing finances, etc.?: No Are you currently unemployed and looking for a job?: No Are you interested in more education?: Yes Currently or been in a relationship where the following occur: No concerns reported THRIVE Score: 0 CLARIBEL-7 AMB Questionnaire CLARIBEL-7 Date CLARIBEL - 7 assessed: 05/01/25 Feeling nervous, anxious, or on edge: 2 = More than half the days Not being able to stop or control worryin = Several days Worrying too much about different things: 1 = Several days Trouble relaxin = Several days Being so restless that it is hard to sit still: 1 = Several days Becoming easily annoyed or irritable: 0 = Not at all Feeling afraid as if something awful might happen: 1 = Several days Total CLARIBEL-7 score (0-4 normal; 5-9 mild; 10-14 moderate; 15-21 severe): 7 Source: Developed by Drs. Negrito Duncan, Caron Sotelo, Nils Garcia and colleagues, with an educational bishop from [employer]. CLARIBEL-7 Assessment Billing CLARIBEL-7 Assessment Tool: CLARIBEL-7 Assessment 05974 Physical exam (Primary Care) Vital Signs: Last Vital Signs Temp 98.5 F 05/01/25 09:25 Pulse 65 05/01/25 09:25 Resp 14 05/01/25 09:25 BP 110/58 L 05/01/25 09:25 Pulse Ox 98 05/01/25 09:25 Oxygen Delivery Method Room Air 05/01/25 09:25 BMI result Body Mass Index 24.9 Tobacco/Smoking Status: Tobacco use Status Tobacco use date assessed 05/01/25 05/01/25 09:27 Patient Tobacco Use Status Never used Tobacco 05/01/25 09:25 e-Cigarette/Vaping Use Never Used 05/01/25 09:25 Depression Screening Interpretation: Positive Depression Screening Follow-up: Existing condition Thrive Assessment: Date of Thrive Assessment Date Thrive assessed 11/30/24 05/01/25 09:20 Currently or been in a relationship where the following occur: No concerns reported Results Reviewed Results Reviewed: Laboratory Tests 04/26/25 12:58 Triglycerides 225 H Cholesterol 280 H LDL Cholesterol, Calc 173 H HDL Cholesterol 62 TSH 4.08 H Free T4 0.93 Coding Level of Care Code Est Pt Level 4 (31120) Add On Problem Visit Only Diagnoses Subclinical hypothyroidism E03.8 Dyslipidemia E78.5 Generalized anxiety disorder F41.1 Additional Codes CLARIBEL-7 Assessment Billing - CLARIBEL-7 Assessment Tool: CLARIBEL-7 Assessment 29725 ([id number]) PHQ-9 - 17647 - PHQ-9 Billing: Yes ([id number]) Assessment & Plan Assessment & Plan (1) Subclinical hypothyroidism: Code(s): E03.8 - Other specified hypothyroidism Category: Medical Plan: Continue to monitor. She denies symptoms of hypothyroidism, and her TSH is near normal. (2) Dyslipidemia: Code(s): E78.5 - Hyperlipidemia, unspecified Category: Medical Plan: We reviewed that elevated cholesterol is believed to be a risk factor for cardiovascular disease. I recommended decreasing consumption of red meat and full fat dairy products. Increase lean proteins and fibrous fruits and vegetables. I recommended the Mediterranean diet. Recommended cardiovascular exercise for at least 30 minutes 5 days per week. Previous LDL was in the 140s. Given lack of other risk factors for cardiovascular disease and young age we will proceed with a trial of lifestyle modification rather than pharmacotherapy at this time. Declines referral to dietitian. (3) Generalized anxiety disorder: Code(s): F41.1 - Generalized anxiety disorder Category: Medical Plan: Stable. Continue propranolol 10-20 mg daily as needed. Plan She has a physical scheduled in November. She will be back from school in October and have fasting lab work completed at that time. Orders: Orders Lipid Panel Today E03.8 - Other specified hypothyroidism, E78.5 - Hyperlipidemia, unspecified, F41.1 - Generalized anxiety disorder TSH reflex Free T4 Today E03.8 - Other specified hypothyroidism, E78.5 - Hyperlipidemia, unspecified, F41.1 - Generalized anxiety disorder Comprehensive Met. Panel Today E03.8 - Other specified hypothyroidism, E78.5 - Hyperlipidemia, unspecified, F41.1 - Generalized anxiety disorder Complete Blood Count no Diff Today E03.8 - Other specified hypothyroidism, E78.5 - Hyperlipidemia, unspecified, F41.1 - Generalized anxiety disorder
[2025-05-01 09:25] VITALS: BP 110/58; PULSE 65; RESP 14; TEMP 36.9; O2SAT 98; BMI 24.9
== END 2025-05-01 09:45 | disposition home or self-care (01) ==
LOC: HO.HMCFM 09:11
PROVIDERS: PCP Physician Assistant; Visit Provider Physician Assistant Medical
DX: E03.8 Other specified hypothyroidism (principal); E78.5 Hyperlipidemia, unspecified; F41.1 Generalized anxiety disorder

== ENCOUNTER → 2025-05-01 09:10 | Outpatient (BNVA) | payer BC, SELFPAY | PROVIDERS: PCP Physician Assistant; Visit Provider Physician Assistant Medical | DX: Z13.31 Encounter for screening for depression (principal); Z13.39 Encounter for screening examination for other mental health and behavioral disorders | CPT/HCPCS: 96127 ==